=== PATIENT | male | born 1950 | race Caucasian/White ===

== ENCOUNTER 2017-04-29 09:26 | Outpatient (CLI) | payer MEDICARE ==
[2017-04-29 09:57] VITALS: BMI 30.7
[2017-04-29 10:42] LABS: #Basophils 0.1 thou/uL (0.0-0.2); #Eosinphils 0.4 thou/uL (0.0-0.7); #Lymphocytes 1.3 thou/uL (1.20-3.40); #Monocytes 0.6 thou/uL (0.11-0.59); #Neutrophils 2.2 thou/uL (1.40-6.50); %Basophils 1.4 % (0.0-1.0); %Eosinophils 7.7 % (0.0-10.0); %Lymphocytes 29.2 % (21.0-51.0); %Monocytes 13.3 % (0.0-10.0); Hematocrit 43.3 % (42.0-52.0); Mean Platelet Volume 8.2 fL (7.4-10.4); Red Blood Cell (RBC) Count 4.58 mill/uL (4.70-6.10); White Blood Cell (WBC) Count 4.6 thou/uL (4.8-10.8)
[2017-04-29 11:13] LABS: Anion Gap 7 mmol/L (10-20); BUN (Urea Nitrogen) 19 mg/dL (8.4-25.7); Calc. Creatinine Clearance 94 mL/min (70-130); Calcium 9.4 mg/dL (7.8-10.44); Carbon Dioxide 28 mmol/L (23-31); Chloride 109 mmol/L (98-107); Estimated GFR-MDRD 68
--- NOTE | 2017-04-29 18:19 | EKG ---
Test Reason : Blood Pressure : / mmHG Vent. Rate : 049 BPM Atrial Rate : 049 BPM P-R Int : 178 ms QRS Dur : 098 ms QT Int : 466 ms P-R-T Axes : 047 060 031 degrees QTc Int : 420 ms Marked sinus bradycardia Cannot rule out Anterior infarct , age undetermined /Doubtful Abnormal ECG No previous ECGs available Confirmed by RADHA HARRISON ([id number]) on 04/29/2017 6:19:03 PM Referred By: IERO Confirmed By:RADHA HARRISON
== END 2017-04-29 09:27 | disposition home or self-care (01) ==
LOC: LABBT 09:26
PROVIDERS: ATTEND Orthopaedic Surgery
DX: Z01.818 Encounter for other preprocedural examination (principal); M25.511 Pain in right shoulder
CPT/HCPCS: 80048; 85025; 93005; 93010

== ENCOUNTER 2017-05-01 06:09 | Day surgery (SDC) | payer MEDICARE ==
[2017-05-01] MEDS ORDERED: Midazolam HCl 2 mg/2 ml Vial ONE (06:52)
[2017-05-01] MEDS ORDERED: Fentanyl 100 MCG/2 ML VIAL ONE (06:52)
[2017-05-01] MEDS ORDERED: Ropivacaine 0.2% HCl/PF 20 ML ONE (06:53)
[2017-05-01] MEDS ORDERED: CEFAZOLIN/Water 2 GM/20 ML SYRINGE ONE (06:57)
[2017-05-01] MEDS ORDERED: Bupivacaine/Epinephrine 0.25% 30 ML VIAL ONE (07:13)
[2017-05-01] MEDS ORDERED: HYDROcodone/Acetaminophen 5/325 mg Tablet PO PRN ×2 (07:17)
[2017-05-01] MEDS ORDERED: Ketorolac Tromethamine 30 MG/ML VIAL IVP PRN (07:17)
[2017-05-01] MEDS ORDERED: Ondansetron HCl/PF 4 MG/2 ML Vial IVP PRN (07:17)
[2017-05-01] MEDS ORDERED: Promethazine HCl 25 MG/ML VIAL IM PRN (07:17)
[2017-05-01] MEDS ORDERED: traMADol HCl 50 MG TAB PO PRN ×2 (07:17)
[2017-05-01] MEDS ORDERED: Ropivacaine 0.2% 550 ML 550 ML NERVE BLCK SCH (07:17)
[2017-05-01] MEDS ORDERED: Zolpidem Tartrate 5 MG TAB PO PRN (07:17)
[2017-05-01] MEDS ORDERED: Fentanyl 100 MCG/2 ML VIAL IV PRN (07:18)
[2017-05-01] MEDS ORDERED: Lidocaine 1% (PF) 30 ML VIAL ONE (07:43)
[2017-05-01] MEDS ORDERED: methylPREDNISolone Acetate 40 mg/ml Vial ONE (07:43)
--- NOTE | 2017-05-01 11:50 | OP ---
DATE OF SURGERY: 05/01/2017 PREOPERATIVE DIAGNOSES: 1. Right shoulder impingement. 2. Left shoulder rotator cuff tear, impingement, some early arthritis and biceps tendon tearing and subluxation. POSTOPERATIVE DIAGNOSES: 1. Right shoulder impingement. 2. Left shoulder with undersurface rotator cuff tear approximately 15%-20% of the biceps tendon. 3. Degenerative labral tear which was a grant labral degenerative tear. 4. 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 5. Biceps tendon tearing and instability with noted medial subluxation. PROCEDURES: 1. Right shoulder arthroscopy with debridement and shaving of degenerative labral tear as well as partial rotator cuff tear as well as any unstable flaps of the glenohumeral joint. 2. Subacromial decompression. 3. Open biceps tenodesis. Again, all incisions involved down to the left shoulder. SURGEON: Garrett Love M.D. RADIATION / CHEMISTRY TECHNICIAN: Yonathan Suarez PA-C. BLOOD LOSS: 50 mL. COMPLICATIONS: None. IMPLANTS: An 8 x 23 BioComposite Bio-Tenodesis screw. CONDITION: He did go to the recovery room in stable condition. He had general anesthetic. He also had a block. INDICATIONS: A 66-year-old male who has problems with both shoulders. At this time, he opted to have the left shoulder operated on and right shoulder injection. DESCRIPTION OF PROCEDURE: After all appropriate consent forms were explained and signed, he was taken back to the operating room and at this time was given a general anesthetic. We then cleaned off the right shoulder with alcohol and performed a subacromial injection using 80 mg of Depo-Medrol and local. We then rolled him into the right lateral decubitus position with all bony prominences well-padded. Axillary roll was placed underneath the right axilla and the maldonado bag was inflated to hold him in this position. The arm was then taken through full range of motion and noted to not have any significant stiffness. The arm was then hung up in the arthroscopic pang with 15 pounds in standard fashion. The left shoulder and upper extremity were then prepped and draped in the standard surgical fashion. Bony anatomic landmarks were drawn out and subacromial space was infiltrated with Marcaine with epinephrine. Posterior portal was then established and the scope was placed into the shoulder joint. Anterior working portal was then made using a needle localization technique between biceps and subscapularis. Initially, there was so much tearing and fraying in the glenohumeral joint, it was hard to get an idea what was going on. Shaver was introduced and gently we debrided tearing of the biceps tendon as well as the labrum circumferentially and then we were able to delineate partial cuff tear, debride that, found that it really only be about 15, may be at most 20% of the rotator cuff and once this was debrided to a stable position, we were able to really evaluate the glenohumeral joint. There was some grade 2 chondromalacia of the humeral head with some crabmeat appearance. The glenoid had some grade 2 and 3 chondromalacia. There were some unstable chondral flaps on the glenoid anteriorly and these were gently debrided. Again, the labrum did have some more debridement performed. No significant loose bodies were noted in the axillary pouch and at this time, the surface energy probe was used to coagulate any bleeding. This was mostly noted medial to the superior surface of the superior labrum as this was starting to adhere or get stuck down to the undersurface of the medial cuff. This plane was developed, again any significant bleeding was coagulated and we then placed a cannula through our anterior portal, we then used a needle to place a stitch through our biceps and the scissors were used to cut the biceps from off its superior insertion. This area was then debrided with the shaver. Scope was then repositioned in subacromial space. No significant fluid excrescence was noted signifying there was no unknown tear whenever we were able to fully evaluate this after making lateral portal and indeed the rotator cuff on the superior surface was found to be intact throughout. The bursa was removed. 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 At this time, scope was removed and shoulder was drained. We then made incision with a 15 blade down through skin only right next to focal where we had placed a suture through the biceps tendon and any brisk venous bleeding was coagulated with the Bovie. We then sharply entered through the deltoid fascia. We then used our finger to dissect down through the deltoid in line with its fibers to get to the underlying transverse humeral ligament. This was opened up, the biceps tendon was pulled out, was found to be medially subluxed. There was a tremendous amount of synovitic tissue around the biceps tendon. This was removed. The transverse humeral ligament was split in its entirety. Brisk venous bleeding was coagulated. The bicipital groove was cleaned out of any tissue and once all this had been done, we were able to stitch our tendon and removed our intra-articular portion which was very diseased and flat and probably in the realm of 1.5 cm in diameter and once all this was removed, we then measured to be in 8, we placed our pin, drilled with an 8 mm reamer to a depth of 25 and placed our 8 x 23 Bio[employer]posite Bio-Tenodesis screw without any complication. The sutures were tied over top of this so that the screw could not back out. We then thoroughly irrigated and dried this region. We then allowed the deltoid to close upon itself and running Vicryl was used to close our deltoid fascia, 2-0 Vicryl and sutures were then used for skin. Each portal was then closed with simple nylon stitch. Bulky sterile dressing was applied. The patient was then awakened and taken to recovery in stable condition. All counts were correct at the end of the case and he received preoperative IV antibiotics. KATTY
[2017-05-01] MEDS ORDERED: Ropivacaine 0.5% HCl/PF (150 MG/30 ML VIAL) ONE (15:04)
[2017-05-01] MEDS ORDERED: ePHEDrine/0.9% NaCl/PF SYRINGE 50 mg/10 ml ONE (15:30)
[2017-05-01] MEDS ORDERED: Ketorolac Tromethamine 30 MG/ML VIAL ONE (15:30)
[2017-05-01] MEDS ORDERED: Vecuronium 10 MG VIAL ONE (15:30)
[2017-05-01] MEDS ORDERED: Propofol 200 MG/20 ML VIAL ONE (15:30)
[2017-05-01] MEDS ORDERED: Glycopyrrolate 0.2 MG/ML 5 ML SYRINGE ONE (15:30)
[2017-05-01] MEDS ORDERED: Ondansetron HCl/PF 4 MG/2 ML Vial ONE (15:30)
[2017-05-01] MEDS ORDERED: Lidocaine 1% PF 5 ML VIAL ONE (15:30)
[2017-05-01] MEDS ORDERED: Dexamethasone 20 MG/5 ML VIAL ONE (15:30)
== END 2017-05-01 11:57 | disposition home or self-care (01) ==
LOC: SDC 06:09
PROVIDERS: ATTEND Orthopaedic Surgery
PROC: 0RBK4ZZ Excision of Left Shoulder Joint, Percutaneous Endoscopic Approach (ICD-10-PCS; principal; 2017-05-01)
PROC: 0LS40ZZ Reposition Left Upper Arm Tendon, Open Approach (ICD-10-PCS; 2017-05-01)
PROC: 0RHK04Z Insertion of Internal Fixation Device into Left Shoulder Joint, Open Approach (ICD-10-PCS; 2017-05-01)
PROC: 3E0U3BZ Introduction of Anesthetic Agent into Joints, Percutaneous Approach (ICD-10-PCS; 2017-05-01)
DX: M75.112 Incomplete rotator cuff tear or rupture of left shoulder, not specified as traumatic (principal); S46.112A Strain of muscle, fascia and tendon of long head of biceps, left arm, initial encounter; S43.432A Superior glenoid labrum lesion of left shoulder, initial encounter; M94.212 Chondromalacia, left shoulder; M19.012 Primary osteoarthritis, left shoulder; M75.41 Impingement syndrome of right shoulder; I10 Essential (primary) hypertension; Z79.1 Long term (current) use of non-steroidal anti-inflammatories (NSAID); Z79.899 Other long term (current) drug therapy; Z96.651 Presence of right artificial knee joint; Z98.890 Other specified postprocedural states
CPT/HCPCS: 20610; 23430; 29823; A4306; C1713; J1030; J1100; J1885; J2001; J2250; J2405; J2704; J2795; J3010

== ENCOUNTER 2020-10-10 08:43 | Outpatient (CLI) | payer MEDICARE ==
[2020-10-10 10:35] LABS: Hemoglobin 14.4 g/dL (13.5-17.5); Mean Corpuscular HGB CONC 31.5 g/dL (32.0-36.0); Mean Corpuscular Hemoglobin 29.3 pg (27.0-33.0); Mean Corpuscular Volume 92.9 fl (81.2-95.1); Mean Platelet Volume 12.2 fl (7.4-10.4); Platelet Count 129 10x3/uL (150-450); RBC Distribution Width 14.1 % (11.5-14.5); Red Blood Cell (RBC) Count 4.92 10x6/uL (4.32-5.72); White Blood Cell (WBC) Count 4.8 10x3/uL (3.5-10.5)
[2020-10-10 10:42] LABS: INR-International Normal Ratio 1.1; Prothrombin Time 12.3 sec (9.5-12.1)
[2020-10-10 10:52] LABS: Anion Gap 14 mmol/L (10-20); BUN (Urea Nitrogen) 15 mg/dL (8.4-25.7); Calc. Creatinine Clearance 0 mL/min (70-130); Calcium 9.2 mg/dL (7.8-10.44); Carbon Dioxide 27 mmol/L (23-31); Chloride 106 mmol/L (98-107); Glucose 66 mg/dL (80-115); Sodium 143 mmol/L (136-145)
[2020-10-10 21:44] LABS: SARS-CoV-2 PCR by NAA Not Detected (NotDetected)
== END 2020-10-10 08:44 | disposition home or self-care (01) ==
LOC: LABBT 08:43
PROVIDERS: ATTEND Internal Medicine Cardiovascular Disease
DX: Z01.812 Encounter for preprocedural laboratory examination (principal); Z20.822 Contact with and (suspected) exposure to COVID-19; T82.120A Displacement of cardiac electrode, initial encounter; I50.9 Heart failure, unspecified; I44.30 Unspecified atrioventricular block
CPT/HCPCS: 80048; 85027; 85610; U0003; U0005; 87635

== ENCOUNTER 2020-10-13 09:03 | Day surgery (SDC) | payer MEDICARE ==
[2020-10-12 12:16] VITALS: BMI 29.2
[2020-10-13] MEDS ORDERED: Lidocaine 1% (PF) 30 ML VIAL ONE (09:18)
[2020-10-13] MEDS ORDERED: Gentamicin 80 MG/2 ML VIAL ONE (09:22)
[2020-10-13] MEDS ORDERED: CEFAZOLIN 1 GM VIAL ONE (09:22)
[2020-10-13] MEDS ORDERED: Vancomycin 1 GM/200 ML BAG ONE (09:26)
[2020-10-13] MEDS ORDERED: Vancomycin HCl 500 MG VIAL ONE (09:27)
[2020-10-13] MEDS ORDERED: PHENYLEPHRINE-NS 100 MCG/ML 10 ML SYRINGE ONE (10:12)
[2020-10-13] MEDS ORDERED: Lidocaine 1% PF 5 ML VIAL ONE (10:12)
[2020-10-13] MEDS ORDERED: PROPOFOL 200 MG/20 ML VIAL ONE (10:12)
[2020-10-13] MEDS ORDERED: Ondansetron PF 4 MG/2 ML Vial ONE (10:12)
[2020-10-13] MEDS ORDERED: Fentanyl 100 MCG/2 ML VIAL ONE ×2 (10:16→16:11)
== END 2020-10-13 19:07 | disposition home or self-care (01) ==
LOC: CCL 09:03
PROVIDERS: ATTEND Internal Medicine Cardiovascular Disease
PROC: 02PA3MZ Removal of Cardiac Lead from Heart, Percutaneous Approach (ICD-10-PCS; principal; 2020-10-13)
PROC: 02HL3KZ Insertion of Defibrillator Lead into Left Ventricle, Percutaneous Approach (ICD-10-PCS; 2020-10-13)
PROC: 02H63KZ Insertion of Defibrillator Lead into Right Atrium, Percutaneous Approach (ICD-10-PCS; 2020-10-13)
PROC: 02HK3KZ Insertion of Defibrillator Lead into Right Ventricle, Percutaneous Approach (ICD-10-PCS; 2020-10-13)
PROC: 0JPT0PZ Removal of Cardiac Rhythm Related Device from Trunk Subcutaneous Tissue and Fascia, Open Approach (ICD-10-PCS; 2020-10-13)
PROC: 0JH609Z Insertion of Cardiac Resynchronization Defibrillator Pulse Generator into Chest Subcutaneous Tissue and Fascia, Open Approach (ICD-10-PCS; 2020-10-13)
DX: I44.30 Unspecified atrioventricular block (principal); I25.5 Ischemic cardiomyopathy; I13.0 Hypertensive heart and chronic kidney disease with heart failure and stage 1 through stage 4 chronic kidney disease, or unspecified chronic kidney disease; N18.9 Chronic kidney disease, unspecified; I50.22 Chronic systolic (congestive) heart failure; T82.120A Displacement of cardiac electrode, initial encounter; I49.5 Sick sinus syndrome; I49.3 Ventricular premature depolarization; I47.2 Ventricular tachycardia; I25.10 Atherosclerotic heart disease of native coronary artery without angina pectoris; I25.2 Old myocardial infarction; E78.5 Hyperlipidemia, unspecified; Z87.891 Personal history of nicotine dependence; Z79.02 Long term (current) use of antithrombotics/antiplatelets; Z79.82 Long term (current) use of aspirin; Z79.899 Other long term (current) drug therapy
CPT/HCPCS: 33225; 33235; 33249; 36005; 71045; 75820; 93005; C1769; C1777; C1898; C1900; J0690; J1580; J2001; J2405; J2704; J3010; J3370

== ENCOUNTER 2021-06-06 08:55 | Outpatient (CLI) | payer MEDICARE ==
[2021-06-06 10:33] LABS: Hemoglobin 12.3 g/dL (13.5-17.5); Mean Corpuscular HGB CONC 33.6 g/dL (32.0-36.0); Mean Corpuscular Hemoglobin 31.9 pg (27.0-33.0); Mean Corpuscular Volume 94.8 fl (81.2-95.1); Mean Platelet Volume 11.7 fl (7.4-10.4); Platelet Count 142 10x3/uL (150-450); RBC Distribution Width 13.1 % (11.5-14.5); Red Blood Cell (RBC) Count 3.86 10x6/uL (4.32-5.72); White Blood Cell (WBC) Count 4.5 10x3/uL (3.5-10.5)
[2021-06-06 11:07] LABS: INR-International Normal Ratio 1.1; Prothrombin Time 11.7 sec (9.5-12.1)
[2021-06-06 11:13] LABS: Anion Gap 12 mmol/L (10-20); BUN (Urea Nitrogen) 26 mg/dL (8.4-25.7); Calc. Creatinine Clearance 0 mL/min (70-130); Calcium 9.5 mg/dL (7.8-10.44); Carbon Dioxide 25 mmol/L (23-31); Chloride 108 mmol/L (98-107); Glucose 72 mg/dL (80-115); Sodium 141 mmol/L (136-145)
[2021-06-06 22:53] LABS: SARS-CoV-2 PCR by NAA Not Detected (NotDetected)
== END 2021-06-06 08:56 | disposition home or self-care (01) ==
LOC: LABBT 08:55
PROVIDERS: ATTEND Internal Medicine Cardiovascular Disease
DX: Z01.812 Encounter for preprocedural laboratory examination (principal); I48.92 Unspecified atrial flutter; Z20.822 Contact with and (suspected) exposure to COVID-19
CPT/HCPCS: 80048; 85027; 85610; U0003; U0005

== ENCOUNTER 2021-06-09 06:02 | Day surgery (SDC) | payer MEDICARE ==
[2021-06-08 10:38] VITALS: BMI 25.7
[2021-06-09] MEDS ORDERED: Fentanyl 100 MCG/2 ML VIAL ONE (06:47)
[2021-06-09] MEDS ORDERED: Ketamine 50 MG/ML (10ML VIAL) ONE (07:19)
[2021-06-09] MEDS ORDERED: Lidocaine 1% PF 5 ML VIAL ONE (07:23)
[2021-06-09] MEDS ORDERED: PROPOFOL 200 MG/20 ML VIAL ONE (07:23)
[2021-06-09] MEDS ORDERED: Glycopyrrolate 0.2 MG/ML 5 ML SYRINGE ONE (07:23)
== END 2021-06-09 09:25 | disposition home or self-care (01) ==
LOC: SDC 06:02
PROVIDERS: ATTEND Internal Medicine Cardiovascular Disease
PROC: 5A2204Z Restoration of Cardiac Rhythm, Single (ICD-10-PCS; principal; 2021-06-09)
DX: I48.4 Atypical atrial flutter (principal); I47.2 Ventricular tachycardia; I49.5 Sick sinus syndrome; I13.0 Hypertensive heart and chronic kidney disease with heart failure and stage 1 through stage 4 chronic kidney disease, or unspecified chronic kidney disease; N18.9 Chronic kidney disease, unspecified; I50.22 Chronic systolic (congestive) heart failure; I25.10 Atherosclerotic heart disease of native coronary artery without angina pectoris; Z79.01 Long term (current) use of anticoagulants; Z79.82 Long term (current) use of aspirin; Z79.899 Other long term (current) drug therapy; Z95.0 Presence of cardiac pacemaker
CPT/HCPCS: 92960; 93005; 93010; J2704; J3010

== ENCOUNTER 2021-07-30 14:04 | Emergency (ER) | payer MEDICARE ==
[2021-07-30 15:17] LABS: #Eosinphils 0.1 thou/uL (0.0-0.7); #Lymphocytes 1.2 thou/uL (1.20-3.40); #Monocytes 0.7 thou/uL (0.11-0.59); %Basophils 0.3 % (0.0-1.0); %Eosinophils 1.5 % (0.0-10.0); %Lymphocytes 17.3 % (21.0-51.0); %Monocytes 10.4 % (0.0-10.0); %Neutrophils 70.5 % (42.0-75.0); Hemoglobin 13.1 g/dL (14.0-18.0); Mean Corpuscular HGB CONC 33.9 g/dL (32.0-36.0); Mean Corpuscular Hemoglobin 33.1 pg (27.0-31.0); Mean Corpuscular Volume 97.5 fL (78.0-98.0); Mean Platelet Volume 8.7 fL (7.4-10.4); Platelet Count 134 thou/uL (130-400); Red Blood Cell (RBC) Count 3.96 mill/uL (4.70-6.10); White Blood Cell (WBC) Count 7.1 thou/uL (4.8-10.8)
[2021-07-30 15:27] LABS: INR-International Normal Ratio 1.3
[2021-07-30 15:29] LABS: PTT 33.1 sec (22.9-36.1)
[2021-07-30 15:38] LABS: ALT (SGPT) 31 U/L (8-55); AST (SGOT) 21 U/L (5-34); Albumin 4.2 g/dL (3.4-4.8); Alkaline Phosphatase 53 U/L (40-110); Anion Gap 16 mmol/L (10-20); BUN (Urea Nitrogen) 34 mg/dL (8.4-25.7); Bilirubin, Total 1.6 mg/dL (0.2-1.2); Calc. Creatinine Clearance 0 mL/min (70-130); Calcium 9.6 mg/dL (7.8-10.44); Carbon Dioxide 18 mmol/L (23-31); Chloride 110 mmol/L (98-107); Globulin 2.5 g/dL (2.4-3.5); Glucose 95 mg/dL (80-115); Potassium 3.7 mmol/L (3.5-5.1); Protein, Total 6.7 g/dL (5.8-8.1); Sodium 140 mmol/L (136-145)
== END 2021-07-30 17:20 | disposition home or self-care (01) ==
LOC: ERS 14:04
DX: I47.2 Ventricular tachycardia (principal); I25.2 Old myocardial infarction; Z79.899 Other long term (current) drug therapy; Z79.82 Long term (current) use of aspirin; Z79.01 Long term (current) use of anticoagulants
CPT/HCPCS: 36415; 71045; 80053; 83735; 83880; 84484; 85025; 85610; 85730; 93005; 94760